=== PATIENT | male | born 1985 | race Caucasian/White ===

== ENCOUNTER 2017-02-03 10:30 | Emergency (ER) | payer BC ==
[~2017-02-03] VITALS: Ht 165.1 cm; Wt 78.3 kg
[~2017-02-03 10:30] MED LIST: AMOXICILLIN 8751 TAB PO; AZO-CRANBERRY450 MG PO; NORCO 325 MG-51 TAB PO; PERCOCET 325 MG1 TA2 PO
[2017-02-03 12:23] LABS: INFLUENZA B NEGATIVE
[2017-02-03] MEDS ORDERED: TAMIFLU 75MG75 MG PO (12:44)
[2017-02-03 13:36] VITALS: BP 120/88; PULSE 90; TEMP 98.2
== END 2017-02-03 13:35 | disposition home or self-care (01) ==
LOC: COL.ER 10:30
PROVIDERS: Nurse Practitioner
DX: J10.1 Influenza due to other identified influenza virus with other respiratory manifestations (principal); F17.210 Nicotine dependence, cigarettes, uncomplicated

== ENCOUNTER 2019-12-19 17:51 | Emergency (ER) | payer SELFPAY ==
[~2019-12-19] VITALS: Ht 167.6 cm; Wt 79.5 kg
[~2019-12-19 17:51] MED LIST changes: +TAMIFLU 75MG75 MG PO
[2019-12-19 18:30] VITALS: BP 139/95; TEMP 98.4
[2019-12-19 20:32] LABS: BASO # 0.1 (0.0-0.2); BASO % 0.5 % (0.0-2.0); EOS # 0.1 (0.0-0.7); EOS % 1.1 % (0-4.0); GRAN # 6.4 (1.4-6.5); GRAN % 62.9 % (42.2-75.2); HEMATOCRIT 49.3 % (42.0-52.0); HEMOGLOBIN 16.9 g/dl (13.5-18.0); LYMPH # 3.1 (1.2-3.4); LYMPH % 30.3 % (20.0-51.0); MEAN CELL VOLUME 90 fl (80.0-100.0); MEAN CORPUSCULAR HEMOGLOBIN 31 pg (27.0-31.0); MEAN CORPUSCULAR HGB CONC 34 g/dl (33.0-37.0); MEAN PLATELET VOLUME 9.2 fl (7.4-10.4); MONO # 0.5 (0.1-0.6); PLATELET COUNT 258 K/mm3 (130-400); RED BLOOD COUNT 5.48 M/mm3 (4.20-5.60)
[2019-12-19 21:12] LABS: ALBUMIN 4.5 gm/dL (3.5-5.0); BILIRUBIN,TOTAL 0.5 mg/dL (0.0-1.0); C-REACTIVE PROTEIN 0.6 mg/dL (0.0-0.9); CALCIUM 9.7 mg/dL (8.4-10.2); CREATININE, serum 0.91 (0.66-1.25); POTASSIUM 3.9 mmol/L (3.4-5.0); TOTAL PROTEIN 7.8 gm/dL (6.4-8.2)
[2019-12-19 21:27] LABS: COLLECTION METHOD CLEAN CATCH
[2019-12-19 21:40] LABS: MUCOUS Present /lpf; PH 6 (5-8); SQUAMOUS EPITHELIAL None Seen /hpf; URINE APPEARANCE Clear; URINE BACTERIA None Seen /hpf; URINE BILIRUBIN Negative (NEGATIVE); URINE BLOOD Negative (NEGATIVE); URINE COLOR Yellow; URINE GLUCOSE Negative (NEGATIVE); URINE KETONE Negative (NEGATIVE); URINE LEUKOCYTE ESTERASE Negative (NEGATIVE); URINE NITRATE Negative (NEGATIVE); URINE PROTEIN(semi-quant) Negative (NEGATIVE); URINE RBC 0-2 /hpf; URINE UROBILINOGEN Negative (NEGATIVE)
[2019-12-19 22:11] VITALS: PULSE 71
== END 2019-12-19 22:12 | disposition home or self-care (01) ==
LOC: COL.ER 17:51
PROVIDERS: Physician Assistant
DX: R10.11 Right upper quadrant pain (principal)

== ENCOUNTER → 2019-12-20 | Outpatient (CLI) | payer SELFPAY | LOC: COL.RAD 10:11 | DX: R10.11 Right upper quadrant pain (principal) ==

== ENCOUNTER → 2020-09-04 | Outpatient (CLI) | payer SELFPAY | LOC: ZCOL.LAB 23:47 | DX: B34.9 Viral infection, unspecified (principal); J22 Unspecified acute lower respiratory infection; Z20.828 Contact with and (suspected) exposure to other viral communicable diseases ==

== ENCOUNTER 2024-06-03 00:02 | Emergency (ER) | payer BC ==
[~2024-06-03] VITALS: Ht 167.6 cm; Wt 79.5 kg
[2024-06-03 00:24] VITALS: BP 110/72; TEMP 98.2
[2024-06-03] MEDS ORDERED: AMOXICILLIN 50500 MG PO (01:44)
[2024-06-03] MEDS ORDERED: NORCO 325 MG-51 TAB PO (01:44)
[2024-06-03] MEDS ORDERED: Amoxicillin 500 MG CAP PO ONE (01:45)
[2024-06-03 01:58] VITALS: PULSE 70
== END 2024-06-03 01:58 | disposition home or self-care (01) ==
LOC: COL.ER 00:02
DX: K02.9 Dental caries, unspecified (principal); F17.210 Nicotine dependence, cigarettes, uncomplicated